=== PATIENT | female | born 1970 | race Caucasian/White ===

== ENCOUNTER → 2019-10-01 | Outpatient (CLI) | payer BC ==
[~2019-10-01] MED LIST: LEVO125T5 PO; THYR60TA PO
[2019-10-01 09:48] LABS: PROTHROMBIN TIME 10.6 Seconds (9.6-11.5)
[2019-10-01 09:49] LABS: ALBUMIN 3.9 g/dL (3.4-5.0); ANION GAP 4 mmol/L (5-15); CALCIUM 8.7 mg/dL (8.5-10.1); CHLORIDE 108 mmol/L (98-107)
[2019-10-01 09:54] LABS: ALANINE AMINOTRANSFERASE 26 U/L (12-78); ALKALINE PHOSPHATASE 82 U/L (45-117); BILIRUBIN,TOTAL 0.7 mg/dL (0.2-1.0); CREATININE 0.86 mg/dL (0.55-1.02); TOTAL PROTEIN 6.8 g/dL (6.4-8.2)
[2019-10-01 10:46] LABS: BASOPHILS # (AUTO) 0.02 x10^3/uL (0-0.1); BASOPHILS % (AUTO) 0 % (0-1); EOSINOPHILS # (AUTO) 0.05 x10^3/uL (0-0.4); EOSINOPHILS % (AUTO) 1 % (1-7); LYMPHOCYTES # (AUTO) 1.42 x10^3/uL (1-3.4); LYMPHOCYTES % (AUTO) 20 % (22-44); MD SCAN; MEAN CORPUSCULAR HEMOGLOBIN 30.9 pg (27.0-34.8); MEAN CORPUSCULAR HGB CONC 33.3 g/dL (32.4-35.8); MEAN CORPUSCULAR VOLUME 92.8 fL (80-100); MEAN PLATELET VOLUME 9.4 fL (7.4-10.4); MONOCYTES # (AUTO) 0.46 x10^3/uL (0.2-0.8); MONOCYTES % (AUTO) 7 % (2-9); NEUTROPHILS # (AUTO) 5.01 x10^3/uL (1.8-6.8); NEUTROPHILS % (AUTO) 72 % (42-75); PLATELET COUNT 286 x10^3/uL (130-400); RED BLOOD COUNT 4.62 x10^6/uL (3.82-5.3); RED CELL DISTRIBUTION WIDTH 13.6 % (9.6-15.2)
== END | disposition home or self-care (01) ==
LOC: STAR 08:12
PROVIDERS: ATTEND Specialist
DX: Z01.818 Encounter for other preprocedural examination (principal); R19.00 Intra-abdominal and pelvic swelling, mass and lump, unspecified site
CPT/HCPCS: 36415; 71046; 80053; 85025; 85610; 85730; 86304; 93005

== ENCOUNTER 2019-10-07 09:30 | Day surgery (SDC) | payer BC ==
[~2019-10-07] VITALS: Ht 167.6 cm; Wt 84.0 kg
[2019-10-07] MEDS ORDERED: LACTATED RINGERS 1,000 ML IV SCH (10:08)
[2019-10-07 10:12] VITALS: BP 114/80
[2019-10-07 10:24] LABS: HCG UR SG 1.015 (1.003-1.030)
[2019-10-07] MEDS ORDERED: LIDOCAINE-MPF 1%, 2ML INFIL ONE (10:30)
[2019-10-07] MEDS ORDERED: CEFOTETAN PMX 2GM/50ML 50 ML IV ONE (10:30)
[2019-10-07] MEDS ORDERED: CHLORHEXIDINE 15 ML UDC MM ONE (10:30)
[2019-10-07] MEDS ORDERED: BUPIVACAINE/PF 0.25% ONE (11:50)
[2019-10-07] MEDS ORDERED: EPINEPHRINE 1 MG/ML, 1ML ONE (11:50)
[2019-10-07] MEDS ORDERED: MIDAZOLAM 1 MG/ML, 2ML ONE (12:45)
[2019-10-07] MEDS ORDERED: FENTANYL PF 250 MCG/5ML ONE ×2 (12:45→13:31)
[2019-10-07] MEDS ORDERED: PROPOFOL 10 MG/ML, 20ML ONE (12:47)
[2019-10-07] MEDS ORDERED: DEXAMETHASONE 4 MG/ML, 1ML ONE ×2 (12:47→12:48)
[2019-10-07] MEDS ORDERED: ROCURONIUM 10MG/ML,5ML ONE (12:47)
[2019-10-07] MEDS ORDERED: GABAPENTIN 300 MG CAPSULE PO ONE (13:00)
[2019-10-07] MEDS ORDERED: DIAZEPAM 5 MG TABLET PO ONE (13:00)
[2019-10-07] MEDS ORDERED: ACETAMINOPHEN 500 MG TABLET PO ONE (13:00)
[2019-10-07] MEDS ORDERED: SCOPOLAMINE 1MG PATCH TD SCH (13:00)
[2019-10-07] MEDS ORDERED: ONDANSETRON 2MG/ML, 2ML IVPush PRN (13:30)
[2019-10-07] MEDS ORDERED: LABETALOL 5MG/ML, 20ML IV PRN (13:30)
[2019-10-07] MEDS ORDERED: ALBUTEROL SULFATE 2.5 MG/3 ML NPPB PRN (13:30)
[2019-10-07] MEDS ORDERED: PROMETHAZINE 25 MG/ML, 1ML IVPush PRN (13:30)
[2019-10-07] MEDS ORDERED: OXYcodone 5 MG/5 ML ORAL.SOL UDC PO PRN (13:30)
[2019-10-07] MEDS ORDERED: MEPERIDINE/PF 25MG/0.5ML IVPush PRN (13:30)
[2019-10-07] MEDS ORDERED: PROMETHAZINE 12.5 MG SUPP PR PRN (13:30)
[2019-10-07] MEDS ORDERED: DIPHENHYDRAMINE 50 MG/ML, 1ML IVPush PRN (13:30)
[2019-10-07] MEDS ORDERED: hydrALAzine 20 MG/ML, 1ML IV PRN (13:30)
[2019-10-07] MEDS ORDERED: HYDROmorphone 1 MG/ML, 1ML INJ IVPush PRN (13:30)
[2019-10-07] MEDS ORDERED: DIAZEPAM 5 MG/ML, 2ML IVPush PRN (13:30)
[2019-10-07] MEDS ORDERED: EPHEDRINE 50 MG/ML, 1ML IVPush PRN (13:30)
[2019-10-07] MEDS ORDERED: MIDAZOLAM 1 MG/ML, 2ML IV PRN (13:30)
[2019-10-07] MEDS ORDERED: ONDANSETRON 2MG/ML, 2ML ONE ×2 (14:18)
[2019-10-07] MEDS ORDERED: SUGAMMADEX 200 MG/2 ML IVPush ONE (14:18)
[2019-10-07] MEDS ORDERED: KETOROLAC 30 MG/1 ML ONE (14:18)
[2019-10-07] MEDS ORDERED: HEPARIN 1,000 UNITS/ML, 30ML ONE (14:50)
[2019-10-07] MEDS ORDERED: FENTANYL PF 100 MCG/2ML ONE (15:05)
[2019-10-07] MEDS: FENTANYL PF 100 MCG/2ML IV PRN ×2 (15:08→15:20)
== END 2019-10-07 18:35 | disposition home or self-care (01) ==
LOC: OUT 09:30
PROVIDERS: ATTEND Specialist
DX: R19.09 Other intra-abdominal and pelvic swelling, mass and lump (principal); Z11.59 Encounter for screening for other viral diseases; D27.0 Benign neoplasm of right ovary; D25.2 Subserosal leiomyoma of uterus; N83.02 Follicular cyst of left ovary; E03.9 Hypothyroidism, unspecified; Z79.890 Hormone replacement therapy; Z79.899 Other long term (current) drug therapy; Z98.84 Bariatric surgery status; Z98.890 Other specified postprocedural states
CPT/HCPCS: 36415; 58552; 74018; 81025; 86850; 86900; 86923; 87635; 88112; 88305; 88307; 88331; J0171; J1100; J1644; J1885; J2250; J2405; J2704; J3010; J3490; J7120; S2900